=== PATIENT | female | born 1940 | race Caucasian/White ===

== ENCOUNTER 2020-03-08 17:19 | Inpatient (IN) | payer MEDICARE, OTHER ==
[~2020-03-08 17:19] MED LIST: Heparin 10,000 UNITS/ 10 ML VIAL ONE; Metoprolol Tartrate 5 MG/5 ML VIAL ONE
[2020-03-08 17:55] LABS: #Basophils 0.1 thou/uL (0.0-0.2); #Eosinphils 0.1 thou/uL (0.0-0.7); #Lymphocytes 1.4 thou/uL (1.20-3.40); #Monocytes 1.1 thou/uL (0.11-0.59); #Neutrophils 7.8 thou/uL (1.40-6.50); %Basophils 0.5 % (0.0-1.0); %Eosinophils 0.9 % (0.0-10.0); %Lymphocytes 13.5 % (21.0-51.0); %Monocytes 10.4 % (0.0-10.0); %Neutrophils 74.8 % (42.0-75.0); Hemoglobin 8.3 g/dL (12.0-16.0); Mean Corpuscular HGB CONC 31.2 g/dL (32.0-36.0); Mean Corpuscular Hemoglobin 26.5 pg (27.0-31.0); Mean Corpuscular Volume 84.8 fL (78.0-98.0); Mean Platelet Volume 8.3 fL (7.4-10.4); Platelet Count 251 thou/uL (130-400); RBC Distribution Width 17.1 % (11.5-14.5); Red Blood Cell (RBC) Count 3.13 mill/uL (4.20-5.40); White Blood Cell (WBC) Count 10.4 thou/uL (4.8-10.8)
[2020-03-08 18:11] LABS: ALT (SGPT) 8 U/L (8-55); AST (SGOT) 20 U/L (5-34); Albumin 2.9 g/dL (3.4-4.8); Alkaline Phosphatase 58 U/L (40-110); Anion Gap 14 mmol/L (10-20); BUN (Urea Nitrogen) 27 mg/dL (9.8-20.1); Bilirubin, Total 0.2 mg/dL (0.2-1.2); CK (CPK) 30 U/L (29-168); Calc. Creatinine Clearance 0 mL/min (70-130); Calcium 8.9 mg/dL (7.8-10.44); Carbon Dioxide 28 mmol/L (23-31); Chloride 94 mmol/L (98-107); Estimated GFR-MDRD 13; Globulin 3.3 g/dL (2.4-3.5); Glucose 227 mg/dL (83-110); Potassium 4.3 mmol/L (3.5-5.1); Protein, Total 6.2 g/dL (6.0-8.3); Sodium 132 mmol/L (136-145)
[2020-03-08 18:27] LABS: CKMB 2.6 ng/mL (0-6.6)
[2020-03-08 18:37] LABS: INR-International Normal Ratio 1.1; Prothrombin Time 14.3 sec (12.0-14.7)
[2020-03-08 18:45] LABS: PTT 245.5 sec (22.9-36.1)
--- NOTE | 2020-03-08 19:01 | RAD ---
PORTABLE CHEST: 03/08/20 HISTORY: Shortness of breath. Comparison made to 03/02/20. FINDINGS/IMPRESSION: Bilateral effusions, larger on the right. Hydropneumothorax in the right lung base has been described previously and is again noted. There is cardiomegaly with vascular congestion. Chest findings do not appear significantly changed when compared to 03/02/20. POS: AGW
[2020-03-08] MEDS ORDERED: Ondansetron ODT 4 MG TAB PO PRN (20:26)
[2020-03-08] MEDS ORDERED: Ondansetron PF 4 MG/2 ML Vial IVP PRN (20:26)
[2020-03-08] MEDS ORDERED: Nitroglycerin 0.4 MG TAB (25 Tab Bottle) SL PRN (20:26)
[2020-03-08] MEDS ORDERED: Guaifenesin DM 100-10/5 ML UDCUP PO PRN (20:26)
[2020-03-08] MEDS ORDERED: Calcium Carbonate 500 MG ChewTAB PO PRN (20:26)
--- NOTE | 2020-03-08 20:39 | PDOC.HHP ---
Hospitalist HPI - History of Present Illness sob History of Present Illness: Case of an 79y/o female with pmhx of cad s/p cabg and stent placement , DMt2 off medication, esrd and diastolic CHF who present to the hospital [facility] due to sob. patient refers she was on her usual state of health until today a few hours ago when she developed sudden onset of sob. patiente states she had been doing wel but today felt weaker than usual before the sudden episode. patient denies any chest pain palpitation or diaphoresis. patient does refers associated cough. denies fever chills or malaise. reports she has been compliant with esrd appointments, and does refers she passes almost no urine. patient with a similis hospialization a few weeks ago, of note patient last admission under different mrn. initially there was a concern for possible st elevations but last ekg seems unchanged and pt had no chest pain. Hospitalist ROS - Review of Systems All other systems reviewed; all pertinent +/- noted in HPI/Subj Hospitalist History - Past Surgical History Past Surgical History: reports: CABG, Tonsillectomy Other Surgical History: hemorroidectomy - Family History Family History: reports: diabetes mellitus - Social History Smoking Status: Never smoker Alcohol: reports: None Drugs: reports: none Living Situation: With Family - Exam General Appearance: NAD, awake alert Eye: PERRL, anicteric sclera ENT: normocephalic atraumatic, no oropharyngeal lesions Neck: supple, symmetric, no JVD Heart: RRR, no murmur, no gallops Respiratory: CTAB, no wheezes, no rales Gastrointestinal: soft, non-tender, non-distended Extremities: no cyanosis, no clubbing, no edema Skin: normal turgor, no lesions Neurological: cranial nerve grossly intact, normal sensation to touch Musculoskeletal: normal tone, normal strength Psychiatric: normal affect, normal behavior, A&O x 3 Hospitalist Results - Labs Result Diagrams: 03/08/20 17:28 03/08/20 17:28 Lab results: WBC 10.4 thou/uL (4.8-10.8) 03/08/20 17:28 Hgb 8.3 g/dL (12.0-16.0) L 03/08/20 17:28 Hct 26.6 % (36.0-47.0) L 03/08/20 17:28 MCV 84.8 fL (78.0-98.0) 03/08/20 17:28 Plt Count 251 thou/uL (130-400) 03/08/20 17: Neutrophils % 74.8 % (42.0-75.0) 03/08/20 17:28 Sodium 132 mmol/L (136-145) L 03/08/20 17: Potassium 4.3 mmol/L (3.5-5.1) 03/08/20 17: Chloride 94 mmol/L (98-107) L 03/08/20 17:28 Carbon Dioxide 28 mmol/L (23-31) 03/08/20 17: BUN 27 mg/dL (9.8-20.1) H 03/08/20 17:28 Creatinine 3.30 mg/dL (0.6-1.1) H 03/08/20 17: Glucose 227 mg/dL (83-110) H 03/08/20 17: Calcium 8.9 mg/dL (7.8-10.44) 03/08/20 17:28 Total Bilirubin 0.2 mg/dL (0.2-1.2) 03/08/20 17: AST 20 U/L (5-34) 03/08/20 17:28 ALT 8 U/L (8-55) 03/08/20 17:28 Alkaline Phosphatase 58 U/L (40-110) 03/08/20 17:28 Creatine Kinase 30 U/L (29-168) 03/08/20 17:28 CK-MB (CK-2) 2.6 ng/mL (0-6.6) 03/08/20 17:28 Troponin I 0.064 ng/mL (< 0.028) H 03/08/20 17:28 B-Natriuretic Peptide 1772.9 pg/mL (0-100) H 03/08/20 17:28 Serum Total Protein 6.2 g/dL (6.0-8.3) 03/08/20 17:28 Albumin 2.9 g/dL (3.4-4.8) L 03/08/20 17:28 Hospitalist H&P A/P - Problem (1) Acute respiratory failure with hypoxia Code(s): J96.01 - ACUTE RESPIRATORY FAILURE WITH HYPOXIA Status: Acute (2) Fluid overload Code(s): E87.70 - FLUID OVERLOAD, UNSPECIFIED Status: Acute (3) Acute on chronic diastolic (congestive) heart failure Code(s): I50.33 - ACUTE ON CHRONIC DIASTOLIC (CONGESTIVE) HEART FAILURE Status: Acute (4) Diabetes Code(s): E11.9 - TYPE 2 DIABETES MELLITUS WITHOUT COMPLICATIONS Status: Acute (5) CAD (coronary artery disease) Code(s): I25.10 - ATHSCL HEART DISEASE OF [place] CORONARY ARTERY W/O ANG PCTRS Status: Acute (6) ESRD (end stage renal disease) Code(s): N18.6 - END STAGE RENAL DISEASE Status: Acute (7) Elevated troponin Code(s): R77.8 - OTHER SPECIFIED ABNORMALITIES OF PLASMA PROTEINS Status: Acute (8) Elevated d-dimer Code(s): R79.89 - OTHER SPECIFIED ABNORMAL FINDINGS OF BLOOD CHEMISTRY Status: Acute (9) Pleural effusion Code(s): J90 - PLEURAL EFFUSION, NOT ELSEWHERE CLASSIFIED Status: Acute - Plan Plan: 79y/o female with the stated pmhx who presents for the evaluation of sudden sob acute respiratory failure hypoxic - arrived with increased RR and los o2 sat requiring 4l of oxygen to improve - Ddx include ami, pe, volume overload, d dchf, pleural effusion volume overload / esrd - cxr with vascular marking - hx of not passing much urine - will consult neurologist for h/d d chf diastolic - cxr with cardiomegaly / vascular marking - last 2d echo done recently 09/20/19 ef 50-55 with diastolic dysfunction, mod pulmonary htn - will require h/d to removed excess liquid - bnp 1700s pleural effusion - noted b/l pleural effusion on cxr, this might improve with h/d - will consult legal job titles for possible thoracenthesis elevated troponin - likely demand ischemia in the setting of D chf and volume overload - will trend troponins - initial 0.064 - on hep drip elevated d dimer - unable to get cta - will order v/q scan - on heparin drip dm - ss+ acc cad - on optimal cad medication w beta marilee acei and statin
[2020-03-08] MEDS ORDERED: Dextrose 5% in Water 1,000 ML IV PRN (21:05)
[2020-03-08] MEDS ORDERED: HumaLOG 300 UNITS/3 ML VIAL SC PRN (21:05)
[2020-03-08] MEDS ORDERED: Dextrose 50% Abboject 50 ML SYRINGE SLOW IVP PRN (21:05)
[2020-03-08 21:08] LABS: Troponin I 0.061 ng/mL (< 0.028)
[2020-03-08] MEDS ORDERED: Heparin 25,000 units/D5W 500 ML IVPB SCH (21:15)
[2020-03-08 21:47] VITALS: BMI 19.5
[2020-03-08 22:24] LABS: Hemoglobin 8.7 g/dL (12.0-16.0); Platelet Count 238 thou/uL (130-400)
[2020-03-08] MEDS: Atorvastatin Calcium 40 MG TAB PO SCH (22:28)
[2020-03-08 23:59] LABS: Troponin I 0.062 ng/mL (< 0.028)
[2020-03-09 05:23] LABS: Anion Gap 14 mmol/L (10-20); BUN (Urea Nitrogen) 34 mg/dL (9.8-20.1); Carbon Dioxide 27 mmol/L (23-31); Chloride 96 mmol/L (98-107); Potassium 4.2 mmol/L (3.5-5.1); Sodium 133 mmol/L (136-145)
[2020-03-09 05:24] LABS: ALT (SGPT) 7 U/L (8-55); AST (SGOT) 11 U/L (5-34); Albumin 2.8 g/dL (3.4-4.8); Alkaline Phosphatase 51 U/L (40-110); Bilirubin, Total 0.2 mg/dL (0.2-1.2); Calc. Creatinine Clearance 9 mL/min (70-130); Cholesterol 108 mg/dl (< 200 Desired); Estimated GFR-MDRD 12; Glucose 126 mg/dL (83-110); HDL Cholesterol 36 mg/dL (>60 Neg Risk); LDL Cholesterol, Calculated 54 mg/dL; Protein, Total 5.8 g/dL (6.0-8.3); Triglycerides 92 mg/dL (Less than 150)
[2020-03-09] MEDS: Heparin 10,000 UNITS/ 10 ML VIAL SLOW IVP SCH ×2 (05:29→17:12)
[2020-03-09 05:56] LABS: Hemoglobin 8.4 g/dL (12.0-16.0); Mean Corpuscular HGB CONC 31.8 g/dL (32.0-36.0); Mean Corpuscular Volume 84.7 fL (78.0-98.0); Mean Platelet Volume 7.9 fL (7.4-10.4); Platelet Count 248 thou/uL (130-400); Red Blood Cell (RBC) Count 3.12 mill/uL (4.20-5.40); White Blood Cell (WBC) Count 10.8 thou/uL (4.8-10.8)
[2020-03-09 06:00] LABS: Band 3 % (5-11); Eosinophils 2 % (0-10); Lymphocytes 13 % (21-51); MDiff Complete? YES; Monocytes 7 % (0-10); Neutrophil 75 % (42-75)
[2020-03-09] MEDS ORDERED: FLU VACC QS2020-21(65YR UP)/PF 240 MCG/0.7 ML SYRINGE IM ONE (09:00)
[2020-03-09 10:36] LABS: SARS-CoV-2 MS2 Positive; SARS-CoV-2 N Gene Negative; SARS-CoV-2 S Gene Negative; SARS-CoV-2 by NAA Not Detected (NotDetected); SARS-CoV-2 orf1ab Negative
--- NOTE | 2020-03-09 12:08 | CON ---
DATE OF CONSULTATION: 03/09/2020 CONSULTING PHYSICIAN: Dr. Juan. REASON FOR CONSULTATION: End-stage renal disease evaluation and care. REASON FOR ADMISSION: Shortness of breath. HISTORY OF PRESENT ILLNESS: This is an 79-year-old female with history of coronary artery disease, type 2 diabetes, end-stage renal disease, pleural effusion, came to the hospital with shortness of breath. The patient was [facility] was getting [facility]. She started having shortness of breath, sent to the hospital. No chest pain or palpitation. She was seen during dialysis. PAST MEDICAL HISTORY: Positive for end-stage renal disease, type 2 diabetes, coronary artery disease, pleural effusion, hypertension, CHF. PAST SURGICAL HISTORY: Hemorrhoidectomy, dialysis access placement, CABG, tonsillectomy. HOME MEDICATIONS: Reviewed. ALLERGIES: ERYTHROMYCIN, IODINE, LATEX, PREGABALIN. SOCIAL HISTORY: No smoking, alcohol, or illicit drug abuse. FAMILY HISTORY: No history of kidney disease. REVIEW OF SYSTEMS: The following complete review of systems was negative, unless otherwise mentioned in the HPI or below: Constitutional: Weight loss or gain, ability to conduct usual activities. Skin: Rash, itching. Eyes: Double vision, pain. ENT/Mouth: Nose bleeding, neck stiffness, pain, tenderness. Cardiovascular: Palpitations, dyspnea on exertion, orthopnea. Respiratory: Shortness of breath, wheezing, cough, hemoptysis, fever or night sweats. Gastrointestinal: Poor appetite, abdominal pain, heartburn, nausea, vomiting, constipation, or diarrhea. Genitourinary: Urgency, frequency, dysuria, nocturia. Musculoskeletal: Pain, swelling. Neurologic/Psychiatric: Anxiety, depression. Allergy/Immunologic: Skin rash, bleeding tendency. PHYSICAL EXAMINATION: GENERAL: This is a well-built female, in no apparent distress. VITAL SIGNS: Temperature 98.2, Pulse 70, respiratory rate 22, blood pressure 164/72. HEENT: Atraumatic and normocephalic. Oral mucosa is moist. NECK: Supple. CV: S1 and S2, rate and rhythm regular. RESPIRATORY: Clear. GI: Abdomen is soft. MUSCULOSKELETAL: No tenderness. No edema. DERMATOLOGIC: No skin rash. NEUROLOGY: Alert and awake. PSYCHIATRIC: Normal mood and affect. LABORATORY DATA: Hemoglobin is 8.4. Potassium 4.2, BUN is 34, and creatinine is 3.7. ASSESSMENT AND PLAN: 1. End-stage renal disease. Plan to have dialysis as tolerated. 2. Edema, controlled. We will remove fluid. 3. Fluid overload with pleural effusion. We will remove fluid with dialysis. 4. Hypertension, stable. 5. Hyponatremia. Limit fluid intake. 6. Plan to continue on dialysis Saturday, Saturday, and Saturday as tolerated. Job ID: [id number]
--- NOTE | 2020-03-09 14:44 | NM ---
RADIONUCLIDE LUNG PERFUSION SCAN: 03/09/20 HISTORY: Shortness of breath. RADIOPHARMACEUTICAL: 5.72 millicuries technetium 99m-MAA intravenously. FINDINGS: Correlation is made with a portable chest radiograph of 03/08/20 (6:45 p.m.). There is better perfusion to the right lower lung than aeration on the chest x-ray. No pleural based, wedge shaped, segmental or subsegmental perfusion defects are seen. IMPRESSION: Low probability for pulmonary embolism. POS: OFF
--- NOTE | 2020-03-09 17:27 | CON ---
DATE OF CONSULTATION: 03/09/2020 REASON FOR CONSULTATION: Shortness of breath. HISTORY OF PRESENT ILLNESS: Ms. Mae is a very pleasant 79-year-old white female, who comes to the hospital for shortness of breath. She was in the rehab facility and started noticing shortness of breath, so she was transferred over for further evaluation. She was found to have elevated BNP and just indeterminate troponins, so she was admitted. She has already received dialysis and already feeling a lot better. On my evaluation, she denies any chest pain, tightness, pressure. No palpitations. No syncope or presyncope. PAST MEDICAL HISTORY: 1. End-stage renal disease, on hemodialysis. 2. Coronary artery disease, status post CABG and more recently stenting to the ostium from the left main to left circ, she has an occluded LAD with a patent BISHOP to the LAD. She has a known occluded RCA that fills from LAD collaterals. 3. Type 2 diabetes. 4. History of diastolic heart failure. PAST SURGICAL HISTORY: 1. Hemorrhoidectomy. 2. Fistula placed. SOCIAL HISTORY: No alcohol, tobacco, or drugs. FAMILY HISTORY: Noncontributory. OUTPATIENT MEDICATIONS: 1. Lactulose. 2. Alprazolam. 3. Bisacodyl. 4. Acetaminophen p.r.n. 5. Sevelamer. 6. Melatonin. 7. Imdur 30 mg a day. 8. Folic acid, vitamin B complex. 9. Losartan 50 mg a day. 10. Acidophilus. 11. Hydralazine b.i.d. 12. Ferrous sulfate. 13. Famotidine. 14. Prozac. 15. Docusate 100 mg b.i.d. 16. Plavix 75 mg a day. 17. Carvedilol 12.5 b.i.d. 18. Atorvastatin. ALLERGIES: 1. ERYTHROMYCIN BASE. 2. IODINE. 3. LATEX. 4. TERRAMYCIN. 5. LYRICA. REVIEW OF SYSTEMS: A 12-point review of systems was done and was found to be negative other than stated in the history of present illness. PHYSICAL EXAMINATION: VITAL SIGNS: Temperature 98.5, pulse 73, respiratory rate 19, saturating 100% on 4 L nasal cannula, blood pressure 149/65. GENERAL: Awake, alert, oriented x3, in no distress. HEENT: Normocephalic, atraumatic. NECK: Supple. LUNGS: Clear. CARDIOVASCULAR: S1 and S2. No S3 or S4. No murmurs. ABDOMEN: Soft. Positive bowel sounds. EXTREMITIES: No edema. SKIN: Warm and dry. LABORATORY DATA: Laboratory work was reviewed. CBC; white count of 10, hemoglobin of 8.3, which is her baseline, platelets of 251. INR was 1.1. D-dimer was high. Chemistry showed BUN and creatinine that are high, GFR of 12, sodium 133, glucose of 126. Troponin was 0.06, 0.06, and 0.06. BNP was 1772. Albumin of 2.8. COVID-19 PCR was not detected. EKG was reviewed. No ST-elevation TN. No acute ischemia. Lung perfusion scan was low probability for pulmonary embolism. ASSESSMENT: 1. . 2. Likely volume overload secondary to end-stage renal disease and diastolic dysfunction. 3. Chronic diastolic dysfunction. 4. Coronary artery disease, stable, no acute coronary syndrome. PLAN: 1. Already feeling better after hemodialysis. No symptoms to suggest ischemia. EKG is unremarkable. Troponins are as expected for somebody with end-stage renal disease. 2. We will continue medical therapy with current medications. 3. Hemodialysis for fluid control. Thank you for letting us to participate in the care of your patient. We will follow. Job ID: [id number]
[2020-03-09] MEDS: Sevelamer Carbonate 800 MG TAB PO SCH ×2 (17:28→17:42)
[2020-03-09] MEDS: Aspirin 81 mg Enteric Coated Tablet PO SCH (17:28)
[2020-03-09] MEDS: Carvedilol 6.25 MG TAB PO SCH ×2 (17:28→17:41)
[2020-03-09] MEDS: Losartan 25 MG TAB PO SCH (17:29)
[2020-03-09] MEDS: Clopidogrel Bisulfate 75 MG TAB PO SCH (17:29)
[2020-03-09] MEDS: FLUoxetine HCl 20 MG CAP PO SCH (17:29)
[2020-03-09] MEDS: hydrALAZINE 25 MG TAB PO SCH (17:29)
--- NOTE | 2020-03-09 19:08 | PDOC.HOSPP ---
- Subjective Encounter Date: 03/09/20 Encounter Time: 11:00 Subjective: Patient seen and examined for shortness of breath. Undergoing hemodialysis. Shortness of breath improving. Denies any fever or chills. Mild dry cough. No other overnight events. - Objective Vital Signs & Weight: Vital Signs (12 hours) Temp Pulse Resp BP BP BP Pulse Ox 03/09/20 17:41 149/65 H 03/09/20 17:29 73 03/09/20 16:00 98.4 F 75 17 142/74 H 95 03/09/20 14:21 98.5 F 73 19 149/65 H 100 03/09/20 08:03 98.2 F 70 20 164/72 H 100 Weight Weight 106 lb 14.4 oz Result Diagrams: 03/10/20 03:37 03/10/20 03:37 Additional Labs: Accuchecks 03/09/20 03/08/20 16:09 22:24 POC Glucose 136 H 127 H Abnormal Lab Results - Last 48 hrs 03/08/20 17:28: Sodium 132 L, Chloride 94 L, BUN 27 H, Creatinine 3.30 H, Albumin 2.9 L, Albumin/Globulin Ratio 0.9 L 03/08/20 17:28: RBC 3.13 L, Hgb 8.3 L, Hct 26.6 L, MCH 26.5 L, MCHC 31.2 L, RDW 17.1 H, Lymphocytes % 13.5 L, Monocytes % 10.4 H, Neutrophils # 7.8 H, Monocytes # 1.1 H 03/08/20 17:28: Troponin I 0.064 H 03/08/20 17:28: B-Natriuretic Peptide 1772.9 H 03/08/20 18:17: APTT 245.5 H* 03/08/20 18:17: D-Dimer 2.48 H 03/08/20 20:31: Troponin I 0.061 H 03/08/20 22:15: Hgb 8.7 L, Hct 28.4 L 03/08/20 22:43: APTT 67.5 H 03/08/20 23:24: Troponin I 0.062 H 03/08/20 23:24: APTT 55.8 H 03/09/20 04:42: Sodium 133 L, Chloride 96 L, BUN 34 H, Creatinine 3.74 H, ALT 7 L, Serum Total Protein 5.8 L, Albumin 2.8 L, Albumin/Globulin Ratio 0.9 L 03/09/20 04:42: RBC 3.12 L, Hgb 8.4 L, Hct 26.4 L, MCHC 31.8 L, RDW 17.0 H, Band Neuts % (Manual) 3 L, Lymphocytes % (Manual) 13 L 03/09/20 04:42: APTT 51.2 H 03/09/20 23:32: APTT 36.2 H Radiology Reviewed by me: Yes (Chest x-raychronic right-sided hydropneumothoraxunchanged) EKG Reviewed by me: Yes (Sinus rhythm on telemetry) Hospitalist ROS - Review of Systems Cardiovascular: denies: chest pain, palpitations, orthopnea, paroxysmal noc. dyspnea, edema, light headedness, other Gastrointestinal: denies: nausea, vomiting, abdominal pain, diarrhea, constipation, melena, hematochezia, other - Medication Medications: Active Medications Generic Name Dose Route Start Last Admin Trade Name Freq PRN Reason Stop Dose Admin Aspirin 81 mg 03/09/20 09:00 03/09/20 17:28 Aspirin 81 Mg Enteric Coated Tablet PO Not Given DAILY CHAKA Atorvastatin Calcium 80 mg 03/08/20 21:00 03/08/20 22:28 Atorvastatin Calcium 40 Mg Tab PO 80 mg HS CHAKA Administration Carvedilol 12.5 mg 03/09/20 08:00 03/09/20 17:41 Carvedilol 6.25 Mg Tab PO 12.5 mg BID-WM CHAKA Administration Clopidogrel Bisulfate 75 mg 03/09/20 09:00 03/09/20 17:29 Clopidogrel Bisulfate 75 Mg Tab PO Not Given DAILY CHAKA Fluoxetine HCl 20 mg 03/09/20 09:00 03/09/20 17:29 Fluoxetine Hcl 20 Mg Cap PO Not Given DAILY [facility] Hydralazine HCl 25 mg 03/09/20 09:00 03/09/20 17:29 Hydralazine 25 Mg Tab PO Not Given DAILY [facility] Isosorbide Mononitrate 30 mg 03/09/20 09:00 03/09/20 17:29 Isosorbide Mononitrate Er 30 Mg Tab PO Not Given DAILY [facility] Losartan Potassium 50 mg 03/09/20 09:00 03/09/20 17:29 Losartan 25 Mg Tab PO Not Given DAILY CHAKA Sevelamer Carbonate 800 mg 03/09/20 08:00 03/09/20 17:42 Sevelamer Carbonate 800 Mg Tab PO 800 mg TID-WM CHAKA Administration - Exam General Appearance: ill appearing Heart: RRR, no gallops Respiratory: no wheezes, rhonchi Respiratory - other findings: Decreased air entry at bases Gastrointestinal: soft, non-distended Extremities: no cyanosis, no clubbing Neurological: no new deficit Hosp A/P - Plan Please note that patient has 2 different medical record number. Patient is a 79-year-old female with end-stage renal disease on hemodialysis and diastolic heart failure was discharged from this facility to inpatient rehabilitation on 02/26. She was found to have pleural effusion requiring thoracentesis last admission. She developed sudden onset of shortness of breath at the rehab requiring transfer to the emergency room. Her O2 sats improved with O2 supplementation. She was started on heparin drip for possible pulmonary embolism. VQ scan on 03/09 came back negative. Shortness of breath is improving with hemodialysis. Acute on chronic hypoxic respiratory failure due to volume overload Chronic right-sided hydropneumothoraxunchanged on the repeat chest x-ray Chronic diastolic heart failure End-stage renal disease on hemodialysis Coronary artery disease Hypertension Dyslipidemia Secondary hyperparathyroidism Plan: VQ scan came back negative. Will discontinue heparin drip. Cardiology and nephrology input appreciated. We will continue current dose of carvedilol, hydralazine, isosorbide mononitrate, losartan and low-dose aspirin. We will start heparin for DVT prophylaxis. Probably discharge to inpatient rehab in a.m. if okay with symptoms. Recheck labs in a.m.
[2020-03-09] MEDS: Atorvastatin Calcium 40 MG TAB PO SCH (20:47)
[2020-03-10 04:25] LABS: #Basophils 0.1 thou/uL (0.0-0.2); #Eosinphils 0.1 thou/uL (0.0-0.7); #Lymphocytes 0.9 thou/uL (1.20-3.40); #Neutrophils 5.8 thou/uL (1.40-6.50); %Basophils 0.8 % (0.0-1.0); %Eosinophils 1.1 % (0.0-10.0); %Lymphocytes 11.5 % (21.0-51.0); %Monocytes 12.7 % (0.0-10.0); %Neutrophils 73.9 % (42.0-75.0); Hemoglobin 8.3 g/dL (12.0-16.0); Mean Corpuscular HGB CONC 31.7 g/dL (32.0-36.0); Mean Corpuscular Hemoglobin 27.3 pg (27.0-31.0); Mean Platelet Volume 7.9 fL (7.4-10.4); Platelet Count 229 thou/uL (130-400); RBC Distribution Width 17.1 % (11.5-14.5); Red Blood Cell (RBC) Count 3.04 mill/uL (4.20-5.40); White Blood Cell (WBC) Count 7.9 thou/uL (4.8-10.8)
[2020-03-10 04:52] LABS: ALT (SGPT) 9 U/L (8-55); AST (SGOT) 18 U/L (5-34); Albumin 2.8 g/dL (3.4-4.8); Alkaline Phosphatase 50 U/L (40-110); Anion Gap 15 mmol/L (10-20); BUN (Urea Nitrogen) 18 mg/dL (9.8-20.1); Bilirubin, Total 0.2 mg/dL (0.2-1.2); Calc. Creatinine Clearance 13 mL/min (70-130); Calcium 8.7 mg/dL (7.8-10.44); Carbon Dioxide 27 mmol/L (23-31); Chloride 100 mmol/L (98-107); Estimated GFR-MDRD 18; Glucose 105 mg/dL (83-110); Potassium 3.8 mmol/L (3.5-5.1); Protein, Total 5.8 g/dL (6.0-8.3); Sodium 138 mmol/L (136-145)
[2020-03-10] MEDS ORDERED: Heparin 5,000 UNITS/ML VIAL SC SCH (09:00)
--- NOTE | 2020-03-10 09:16 | PRG ---
DATE OF SERVICE: 03/10/2020 SUBJECTIVE: This morning, she is awake, alert, responsive, in no distress. OBJECTIVE: VITAL SIGNS: Temperature 98, pulse 73, respirations , saturations are 100% on 4 L, blood pressure 168/74. CHEST: Decreased breath sounds. No wheezing. CARDIAC: Normal S1 and S2. No gallops. ABDOMEN: No masses. LABORATORY DATA: Creatinine 2.5, BUN 18. IMPRESSION: Right pleural effusion chronic, recent thoracentesis, that appears to be relatively stable. Cardiomyopathy, chronic renal failure. PLAN: Pulmonary lópez, avoid thoracentesis unless significant dyspnea. At this stage, not much to offer. Please call Pulmonary if needed. Job ID: [id number]
[2020-03-10] MEDS: hydrALAZINE 25 MG TAB PO SCH (10:08)
[2020-03-10] MEDS: Aspirin 81 mg Enteric Coated Tablet PO SCH (10:08)
[2020-03-10] MEDS: Losartan 25 MG TAB PO SCH (10:08)
[2020-03-10] MEDS: Clopidogrel Bisulfate 75 MG TAB PO SCH (10:08)
[2020-03-10] MEDS: Carvedilol 6.25 MG TAB PO SCH (10:08)
[2020-03-10] MEDS: Sevelamer Carbonate 800 MG TAB PO SCH ×2 (10:09→13:13)
[2020-03-10] MEDS: FLUoxetine HCl 20 MG CAP PO SCH (10:09)
--- NOTE | 2020-03-10 12:38 | PDOC.CPN ---
- Subjective Date: 03/10/20 Time: 12:36 Interval history: She is back to baseline. No chest pain. Breathing at baseline. - Review of Systems General: denies: fever/chills, weight/appetite/sleep changes, night sweats, fatigue Respiratory: denies: cough, congestion, shortness of breath, exercise intolerance Cardiovascular: denies: chest pain, palpitation, edema, paroxysmal nocturnal dyspnea, orthopnea Gastrointestinal: denies: nausea, vomiting, diarrhea, constipation, abd pain, GI bleeding Musculoskeletal: denies: pain, tenderness, stiffness, swelling, arthritis/arthralgias Neurological: denies: numbness, syncope, seizure, weakness - Objective Allergies/Adverse Reactions: Allergies Allergy/AdvReac Type Severity Reaction Status Date / Time erythromycin base Allergy Verified 03/08/20 22:00 iodine Allergy Verified 03/08/20 22:00 latex Allergy Verified 03/08/20 22:00 oxytetracycline Allergy Verified 03/08/20 22:00 [From Terramycin] pregabalin [From Lyrica] Allergy Verified 03/08/20 22:00 Visit Medications: Current Medications Aspirin (Aspirin 81 Mg Enteric Coated Tablet) 81 mg PO DAILY [facility] Last Admin: 03/10/20 10:08 Dose: 81 mg Documented by: Atorvastatin Calcium (Atorvastatin Calcium 40 Mg Tab) 80 mg PO HS [facility] Last Admin: 03/09/20 20:47 Dose: 80 mg Documented by: Calcium Carbonate (Calcium Carbonate 500 Mg Chewtab) 1,000 mg PO Q4H PRN PRN Reason: Heartburn or Indigestion Carvedilol (Carvedilol 6.25 Mg Tab) 12.5 mg PO BID-[facility] Last Admin: 03/10/20 10:08 Dose: 12.5 mg Documented by: Clopidogrel Bisulfate (Clopidogrel Bisulfate 75 Mg Tab) 75 mg PO DAILY [facility] Last Admin: 03/10/20 10:08 Dose: 75 mg Documented by: Dextrose/Water (Dextrose 50% Abboject 50 Ml Syringe) 25 gm SLOW IVP PRN PRN PRN Reason: Hypoglycemia Fluoxetine HCl (Fluoxetine Hcl 20 Mg Cap) 20 mg PO DAILY [facility] Last Admin: 03/10/20 10:09 Dose: 20 mg Documented by: Glucagon (Glucagon 1 Mg/Ml Vial) 1 mg IM PRN PRN PRN Reason: Hypoglycemia Guaifenesin/Dextromethorphan (Guaifenesin Dm 100-10/5 Ml Udcup) 15 ml PO Q4H PRN PRN Reason: Cough Heparin Sodium (Porcine) (Heparin 5,000 Units/Ml Vial) 5,000 units SC BID [facility] Last Admin: 03/10/20 10:09 Dose: 5,000 units Documented by: Hydralazine HCl (Hydralazine 25 Mg Tab) 25 mg PO DAILY [facility] Last Admin: 03/10/20 10:08 Dose: 25 mg Documented by: Dextrose/Water (D5w) 1,000 mls @ 0 mls/hr IV .Q0M PRN PRN Reason: Hypoglycemia Insulin Human Lispro (Humalog 300 Units/3 Ml Vial) 0 units SC .MILD SLIDING SCALE PRN PRN Reason: Mild Correctional Scale Isosorbide Mononitrate (Isosorbide Mononitrate Er 30 Mg Tab) 30 mg PO DAILY [facility] Last Admin: 03/10/20 10:09 Dose: 30 mg Documented by: Losartan Potassium (Losartan 25 Mg Tab) 50 mg PO DAILY [facility] Last Admin: 03/10/20 10:08 Dose: 50 mg Documented by: Nitroglycerin (Nitroglycerin 0.4 Mg Tab (25 Tab Bottle)) 0.4 mg SL Q5MIN PRN PRN Reason: Chest Pain Ondansetron HCl (Ondansetron Odt 4 Mg Tab) 4 mg PO Q6H PRN PRN Reason: Nausea/Vomiting Ondansetron HCl (Ondansetron Pf 4 Mg/2 Ml Vial) 4 mg IVP Q6H PRN PRN Reason: Nausea/Vomiting Sevelamer Carbonate (Sevelamer Carbonate 800 Mg Tab) 800 mg PO TID-[facility] Last Admin: 03/10/20 10:09 Dose: 800 mg Documented by: Vital Signs & Weight: Vital Signs Temp Pulse Resp BP Pulse Ox 03/10/20 08:47 98.3 F 73 17 168/74 H 100 03/10/20 03:42 97.9 F 68 16 147/66 H 99 03/10/20 01:37 99 Weight 106 lb 14.4 oz - Physical Exam General: alert & oriented x3 HEENT: mucus membranes moist Neck: supple neck Cardiac: regular rate and rhythm Lungs: clear to auscultation Neuro: grossly intact Abdomen: active bowel sounds Extremities: no edema Skin: clear Musculoskeletal: no pain - Labs Result Diagrams: 03/10/20 03:37 03/10/20 03:37 Troponin/CKMB CK-MB (CK-2) 2.6 ng/mL (0-6.6) 03/08/20 17:28 Troponin I 0.062 ng/mL (< 0.028) H 03/08/20 23:24 - Telemetry Sinus rhythms and dysrhythmias: sinus rhythm - Assessment/Plan Assessment/Plan: 1. Elevated troponins. Demand ischemia. Typical of ESRD. 2. ESRD 3. Volume overload, resolved. PLAN: - CV stable. No ACS. - May discharge at any point from cardiac perspective.
--- NOTE | 2020-03-10 13:06 | PRG ---
DATE OF SERVICE: 03/10/2020 SUBJECTIVE: Patient was seen and examined at bedside and overnight events noted. Patient denies any shortness of breath or chest pain or palpitation. No history of nausea or vomiting or diarrhea or fever or chills or cramps. OBJECTIVE: GENERAL: This is well-built female in no apparent distress. VITAL SIGNS: Temperature 98.3. Heart Rate 73. Respiratory rate 18. Blood pressure 168/74. HEENT: Atraumatic, normocephalic. Oral mucosa is moist. NECK: Supple. CARDIOVASCULAR: S1, S2 heard. Rate and rhythm regular. RESPIRATORY: Clear to auscultation. GASTROINTESTINAL: Abdomen is soft. MUSCULOSKELETAL: No tenderness. No edema. DERMATOLOGIC: No skin rash. NEUROLOGIC: Alert and awake and oriented x3. No focal neurologic deficits. Moving all the extremities. PSYCHIATRIC: Mood and affect normal. LABORATORY DATA: Potassium 3.8, BUN is 18, creatinine is 2.5. ASSESSMENT AND PLAN: 1. End-stage renal disease. Continue dialysis as tolerated. 2. Edema. 3. Fluid overload. 4. Hypertension. 5. Hyponatremia. We will continue dialysis as tolerated; Saturday, Saturday, and Saturday. Job ID: [id number]
[2020-03-10 13:29] VITALS: BP 134/62; TEMP 98.8
--- NOTE | 2020-03-11 07:57 | PDOC.DS.DS ---
Provider - Provider Date of Admission: 03/08/20 20:04 Date of Discharge: 03/10/20 Admitting Provider: Horacio West Consultations: Cardiology, Nephrology, Pulmonary Primary Care Physician: Mekhi Day Course - Hospital Course Hospital Course: Patient is a 79-year-old female with end-stage renal disease on hemodialysis and diastolic heart failure was discharged from this facility to inpatient rehabilitation on 02/26. She was found to have pleural effusion requiring thoracentesis last admission. She developed sudden onset of shortness of breath at the rehab requiring transfer to the emergency room. Her O2 sats improved with O2 supplementation. She was started on heparin drip for possible pulmonary embolism. VQ scan on 03/09 came back negative. Shortness of breath significantly improved with hemodialysis. Patient was evaluated by cardiology and pulmonary. There was no need for repeat thoracentesis per pulmonary. No new recommendations by cardiology service. Patient has been cleared for discharge by the consultants. Please note that patient has 2 different medical record numbers. Final diagnosis: Acute on chronic hypoxic respiratory failure due to volume overload Chronic right-sided hydropneumothoraxunchanged on the repeat chest x-ray Chronic diastolic heart failure End-stage renal disease on hemodialysis Coronary artery disease Hypertension Dyslipidemia Secondary hyperparathyroidism Resuscitation Status: 03/08/20 20:26 Resuscitation Status Routine Resuscitation Status: PRTL: Intubate only Discussed with: patient - Labs Lab Results: 03/10/20 03:37 03/10/20 03:37 Abnormal Lab Results - Last 48 hrs 03/09/20 23:32: APTT 36.2 H 03/10/20 03:37: Creatinine 2.58 H, Serum Total Protein 5.8 L, Albumin 2.8 L, Albumin/Globulin Ratio 0.9 L 03/10/20 03:37: RBC 3.04 L, Hgb 8.3 L, Hct 26.1 L, MCHC 31.7 L, RDW 17.1 H, Lymphocytes % 11.5 L, Monocytes % 12.7 H, Lymphocytes # 0.9 L, Monocytes # 1.0 H - Physical Exam Vitals: Weight Weight 106 lb 14.4 oz Physical Exam: The patient was seen and examined on the day of discharge. Plan - Discharge Medications Home Medications: Medication Instructions Recorded Confirmed Type ALPRAZolam 0.25 mg PO TID 03/08/20 03/08/20 History Acetaminophen 1 tab PO Q4HR PRN 03/08/20 03/08/20 History Atorvastatin Calcium [Lipitor] 2 tab PO HS 03/08/20 03/08/20 History Bisacodyl 10 mg RC DAILY 03/08/20 03/08/20 History Carvedilol 12.5 mg PO BID 03/08/20 03/08/20 History Clopidogrel Bisulfate [Clopidogrel] 75 mg PO DAILY 03/08/20 03/08/20 History Docusate Sodium 100 mg PO BID 03/08/20 03/08/20 History FLUoxetine HCl [Prozac] 1 tab PO BID 03/08/20 03/08/20 History Famotidine 1 tab PO DAILY 03/08/20 03/08/20 History Ferrous Sulfate 325 mg PO DAILY 03/08/20 03/08/20 History Folic Acid/Vit B Comp W-C 1 tab PO DAILY 03/08/20 03/08/20 History [Nephro-Nataliia] Heparin Sodium,Porcine [Heparin 5,000 unit SQ Q12HR 03/08/20 03/08/20 History Sodium] Isosorbide Mononitrate [Isosorbide 30 mg PO DAILY 03/08/20 03/08/20 History Mononitrate ER] Lactobacillus Acidophilus 1 cap PO TID 03/08/20 03/08/20 History [Acidophilus] Lactulose 20 g PO BID 03/08/20 03/08/20 History Losartan [Cozaar] 50 mg PO DAILY 03/08/20 03/08/20 History Melatonin 9 mg PO HS 03/08/20 03/08/20 History Sevelamer Carbonate 800 mg PO TID 03/08/20 03/08/20 History hydrALAZINE [Apresoline] 1 tab PO BID 03/08/20 03/08/20 History Allergies: erythromycin base Allergy (Verified 03/08/20 22:00) iodine Allergy (Verified 03/08/20 22:00) latex Allergy (Verified 03/08/20 22:00) oxytetracycline [From Terramycin] Allergy (Verified 03/08/20 22:00) pregabalin [From Lyrica] Allergy (Verified 03/08/20 22:00) - Follow up Plan Referrals: RONALDO Davis [facility], Viktor Hawkins [Other] (Returning to inpatient rehab.) Mekhi Day NP [Primary Care Provider] - Leyda Vigil MD [Active] - (Accepting pcp at the [facility] of Viktor Hawkins.) Disposition: REHABILITATION INPATIENT Quality - Care Measures CORE MEASURES:: N/A
--- NOTE | 2020-03-12 08:56 | CON ---
DATE OF CONSULTATION: 03/09/2020 HISTORY OF PRESENT ILLNESS: An 79-year-old female who is referred for pleural effusion. The patient has longstanding pleural effusion, who has had a previous thoracentesis done about a month ago. I reviewed her extensive medical history. She has an old effusion dating back to 2017. Today's x-ray shows that the effusion is there, appears no worse. She is being dialyzed and appears to be in no acute distress. She presented to the ER with some chest pain with some concern about ST segment elevation. PAST MEDICAL HISTORY: Coronary artery disease; CHF; end-stage renal disease, on dialysis; COPD. PREVIOUS SURGERIES: Hemorrhoid, tonsils, fistula access, cardiac stent, previous thoracentesis. HOME MEDICATIONS: Include, long list, 1. Hydralazine. 2. Melatonin. 3. Cozaar 50. 4. Lactulose. 5. ISMO 30. 6. Prozac. 7. Plavix 75. 8. Coreg 12.5. 9. Lipitor tablets. 10. Xanax p.r.n. ALLERGIES: IODINE, LYRICA, ERYTHROMYCIN. SOCIAL AND FAMILY HISTORY: As noted. REVIEW OF SYSTEMS: Ten-point negative. PHYSICAL EXAMINATION: VITAL SIGNS: Temperature 98, pulse respirations 24, saturation 100% on 2 L, blood pressure 130/70. GENERAL: No distress. CHEST: No wheezing, no crackles. CARDIAC: Normal S1, S2. No gallops. ABDOMEN: No masses. IMAGING: X-rays were reviewed, which shows the noted right pleural effusion, not much larger from previous x-rays. LABORATORY DATA: White count was 10,000, H and H 8.4 and 26.4, platelet count 248. Chemistry profile, creatinine 2.4. IMPRESSION: 1. Right pleural effusion, chronic in nature, present at least in 2017, multifactorial, though she did undergo thoracentesis recently. 2. Pleural effusion secondary to CHF, chronic renal failure. 3. Hypertension. 4. Coronary artery disease. PLAN: Avoid thoracentesis, she is asymptomatic. Continue aggressive dialysis. Continue cardiac care. We will follow at a distance, but call if she needs further treatment plan This is a consultation note, 70 minutes, 50% direct patient care. Job ID: [id number]
--- NOTE | 2020-03-19 11:44 | EKG ---
Test Reason : Blood Pressure : / mmHG Vent. Rate : 071 BPM Atrial Rate : 071 BPM P-R Int : 208 ms QRS Dur : 116 ms QT Int : 430 ms P-R-T Axes : 013 046 163 degrees QTc Int : 467 ms Normal sinus rhythm Abnormal ECG #2 Confirmed by SEBAS OBREGON M.D. ([id number]), editor publications ANTONIO RODRIGUEZ ([id number]) on 03/19/2020 11:43:54 AM Referred By: Confirmed By:SEBAS OBREGON M.D.
--- NOTE | 2020-03-19 11:44 | EKG ---
Test Reason : Blood Pressure : / mmHG Vent. Rate : 071 BPM Atrial Rate : 071 BPM P-R Int : 220 ms QRS Dur : 116 ms QT Int : 428 ms P-R-T Axes : 066 061 177 degrees QTc Int : 465 ms Sinus rhythm with 1st degree A-V block Abnormal ECG Confirmed by SEBAS OBREGON M.D. ([id number]), mapping editor ANTONIO RODRIGUEZ ([id number]) on 03/19/2020 11:43:48 AM Referred By: Confirmed By:SEBAS OBREGON M.D.
== END 2020-03-10 13:27 | DRG 291 ==
LOC: ERS 17:19 → 2NO 20:04
PROVIDERS: ADMIT Internal Medicine; ATTEND Internal Medicine
PROC: 5A1D70Z Performance of Urinary Filtration, Intermittent, Less than 6 Hours Per Day (ICD-10-PCS; principal; 2020-03-09)
DX: I13.2 Hypertensive heart and chronic kidney disease with heart failure and with stage 5 chronic kidney disease, or end stage renal disease (principal); N18.6 End stage renal disease; J96.21 Acute and chronic respiratory failure with hypoxia; J90 Pleural effusion, not elsewhere classified; I24.8 Other forms of acute ischemic heart disease; J94.8 Other specified pleural conditions; N25.81 Secondary hyperparathyroidism of renal origin; E87.1 Hypo-osmolality and hyponatremia; I50.32 Chronic diastolic (congestive) heart failure; I25.10 Atherosclerotic heart disease of native coronary artery without angina pectoris; F41.9 Anxiety disorder, unspecified; R77.8 Other specified abnormalities of plasma proteins; R79.89 Other specified abnormal findings of blood chemistry; E78.5 Hyperlipidemia, unspecified; E87.70 Fluid overload, unspecified; E11.22 Type 2 diabetes mellitus with diabetic chronic kidney disease; Z99.2 Dependence on renal dialysis; I25.2 Old myocardial infarction; Z90.49 Acquired absence of other specified parts of digestive tract; Z95.5 Presence of coronary angioplasty implant and graft; Z95.1 Presence of aortocoronary bypass graft; Z88.1 Allergy status to other antibiotic agents; Z91.040 Latex allergy status; Z88.8 Allergy status to other drugs, medicaments and biological substances; Z79.01 Long term (current) use of anticoagulants; Z79.899 Other long term (current) drug therapy; Z79.82 Long term (current) use of aspirin; Z20.828 Contact with and (suspected) exposure to other viral communicable diseases
CPT/HCPCS: 36415; 36416; 71045; 78451; 80053; 80061; 82550; 82553; 83880; 84484; 85025; 85379; 85610; 85730; 87635; 90935; 93005; 96365; 96366; 96374; 96376; A9540; G0257; J1644; U0003